=== PATIENT | female | born 1995 | race Two or more races ===

== ENCOUNTER 2018-07-06 19:15 | Emergency (ER) | payer OTHER ==
[2018-07-06 19:36] VITALS: BP 98/58
[2018-07-06] MEDS ORDERED: FLUCONAZOLE 100 MG TABLET PO ONE (20:41)
[2018-07-06] MEDS ORDERED: LEVONORGESTREL 1.5 MG TABLET (1 TAB/ER-USE) PO ONE (20:41)
--- NOTE | 2018-07-06 20:43 | ER Document Report ---
HPI - HPI Patient complains to provider of: yeast infection, requesting Plan B Time Seen by Provider: 07/06/18 20:33 Onset: Last week Onset/Duration: Gradual Quality of pain: No pain Severity: Mild Pain Level: 2 Context: 19-year-old female with no past medical history presents to the emergency department for requesting treatment for yeast infection and for plan B. She endorses no high risk sexual activity and is in a monogamous relationship for the last 4 years. She said this yeast infection is typical of ones she usually gets last one was 4 months ago which was treated with Diflucan successfully. Menstrual period July 01, 2018. She denies fever, chills, shortness of breath, chest pain, nausea, vomiting, diarrhea, dysuria, urinary frequency, pain with sex. She endorses itching and vaginal discharge. Associated Symptoms: None Exacerbated by: Denies Relieved by: Denies - CONSTITUTIONAL Constitutional: DENIES: Fever, Chills - CARDIOVASCULAR Cardiovascular: DENIES: Chest pain - RESPIRATORY Respiratory: DENIES: Trouble Breathing, Coughing - GASTROINTESTINAL Gastrointestinal: DENIES: Abdominal Pain, Nausea, Patient vomiting, Diarrhea - URINARY Urinary: DENIES: Dysuria, Urgency, Frequency - REPRODUCTIVE LMP: 07/01 Past Medical History - General Information source: Patient - Social History Smoking Status: Never Smoker Chew tobacco use (# tins/day): No Frequency of alcohol use: None Drug Abuse: None Family History: Reviewed & Not Pertinent Patient has suicidal ideation: No Patient has homicidal ideation: No Renal/ Medical History: Denies: Hx Peritoneal Dialysis Vertical Provider Document - CONSTITUTIONAL Agree With Documented VS: Yes Exam Limitations: No Limitations - INFECTION CONTROL TRAVEL OUTSIDE OF THE [place] IN LAST 30 DAYS: No - HEENT HEENT: Atraumatic, Normocephalic - RESPIRATORY Respiratory: Breath Sounds Normal, No Respiratory Distress - CARDIOVASCULAR Cardiovascular: Regular Rate, Regular Rhythm - REPRODUCTIVE Female Genitalia: negative: Normal Inspection - Patient declined pelvic exam Course - Re-evaluation Re-evalutation: 07/06/18 Patient is here for patient is a member and here for treatment for a yeast infection and for plan B. Sexual encounter was yesterday. Discussed with patient recommendation for a pelvic exam to rule out any other STI's but patient refused. She states she states this is typical of her previous yeast infections and she is in a monogamous relationship. I reiterated that we recommend performing 1 just to rule out STI as she again refused. I also asked her to provide a urine sample to ensure she does not have a UTI and she refused as well. - Vital Signs Vital signs: Temp Pulse Resp BP Pulse Ox 98.2 F 67 14 98/58 L 100 07/06/18 19:32 12 19:32 07/06/18 19:32 07/06/18 19:32 07/06/18 19:32 Discharge - Discharge Clinical Impression: Yeast infection, Possible , not confirmed Condition: Good Disposition: HOME, SELF-CARE Instructions: Vaginal Yeast Infection (OM) Additional Instructions: You were seen in the emergency department this evening for a yeast infection and for plan B. If you are still having symptoms of yeast infection in 7 days you may need an additional dose of Diflucan. Follow-up with your primary doctor. You refused a pelvic exam for STD testing. If you develop fever, chills, nausea, foul-smelling discharge, pain with sex, severe abdominal pain please return to the emergency department. VAGINITIS: Your exam shows that you have vaginitis, a vaginal infection. The infection can be caused by a many different organisms, including trichomonas or Gardnerella. The usual symptoms are vaginal irritation and discharge. The treatment is usually antibiotics such as Flagyl. Laboratory tests can determine which germ is responsible. Use the medication as prescribed. Because this infection can be transmitted sexually, your sexual partner may need to be checked and treated also. If your physician has not discussed this with you, please check before resuming sexual relations. If a culture shows gonorrhea or chlamydia, the infection must be reported to the health department. Call the doctor if you develop pelvic pain, fever, or problems with urination, or if you don't improve as expected. VAGINAL YEAST INFECTION: You have evidence of a yeast infection -- called "jose antonio." A vaginal yeast infection often causes itching and discharge. While not dangerous, it can be very unpleasant. A yeast infection often follows the use of powerful antibiotics. It is more likely to occur in diabetics. The treatment now is usually a single pill of Diflucan, but also an antifungal cream or suppository may be used for a few days. You do not need to avoid sexual intercourse. Recurrences are common. You can make a recurrence less likely by wearing cotton underwear and avoiding tight clothing. For mild recurrences, you can try [id number] creams or suppositories that are made specifically for yeast. If the symptoms do not resolve, you should follow up for re-examination. Sometimes treatment of the sexual partner is necessary if infections are recurrent. FLUCONAZOLE: Fluconazole (Diflucan) is an antifungal drug. It is useful for serious fungal infections, but is also excellent for oral or vaginal yeast infections. Diflucan interacts with some medicines. This is a concern if you are taking anticoagulants (such as Coumadin), phenytoin (Dilantin), cyclosporin, or oral hypoglycemics (such as tolbutamide, Orinase, glipizide, Glucotrol, glyburide, DiaBeta, Glynase, and Micronase). Be sure the doctor knows if you are taking one of these medicines. We don't know how Diflucan affects . If you are planning to become , discuss this with your doctor. Diflucan has few side effects. Minor side effects may include nausea, headache, or diarrhea. Call the doctor if you develop a skin rash, shortness of breath, or other new symptoms. FOLLOW-UP CARE: If you have been referred to a physician for follow-up care, call the physician s office for an appointment as you were instructed or within the next two days. If you experience worsening or a significant change in your symptoms, notify the physician immediately or return to the Emergency Department at any time for re-evaluation.
== END 2018-07-06 20:57 | disposition home or self-care (01) ==
LOC: ER 19:15
DX: B37.9 Candidiasis, unspecified (principal); N89.8 Other specified noninflammatory disorders of vagina
CPT/HCPCS: 99283; A9270